=== PATIENT | female | born 1955 | race Caucasian/White ===

== ENCOUNTER 2020-09-21 13:40 | Emergency (ER) | payer MEDICARE, OTHER ==
[~2020-09-21] VITALS: Ht 157.5 cm; Wt 74.8 kg
[~2020-09-21 13:40] MED LIST: COLE3.75; ESOM40CA39; ROPI0.25; TAPE200T
[2020-09-21 14:49] VITALS: BP 130/78
[2020-09-21] MEDS ORDERED: IBUPROFEN 800 MG TAB PO ONE (16:00)
== END 2020-09-21 16:25 | disposition home or self-care (01) ==
LOC: ER 13:40
DX: S76.912A Strain of unspecified muscles, fascia and tendons at thigh level, left thigh, initial encounter (principal); F17.210 Nicotine dependence, cigarettes, uncomplicated; Z79.899 Other long term (current) drug therapy; Z88.0 Allergy status to penicillin; X50.1XXA Overexertion from prolonged static or awkward postures, initial encounter; Y93.89 Activity, other specified; Y92.89 Other specified places as the place of occurrence of the external cause; Y99.8 Other external cause status